=== PATIENT | female | born 1970 | race Two or more races ===

== ENCOUNTER 2020-02-18 18:42 | Inpatient (IN) | payer OTHER, SELFPAY ==
[~2020-02-18] VITALS: Ht 157.5 cm; Wt 73.8 kg
[2020-02-18] MEDS ORDERED: ACETAMINOPHEN 500 MG TAB PO ONE ×3 (18:51→19:00)
[2020-02-18 19:21] LABS: Basophils # (auto) 0 10 ^3/uL (0-0.2); Basophils % (auto) 0.3 % (0.0-2.0); Eosinophils # (auto) 0 10 ^3/uL (0-0.8); Hemoglobin 14.7 g/dL (12.2-16.2); Lymphocytes % (auto) 8.3 % (10.0-50.0); Mean Corpuscular Hemoglobin 29.9 pg (28.0-32.0); Mean Corpuscular Hgb Conc. 33.3 g/dL (32.0-36.0); Mean Corpuscular Volume 89.6 fL (80.0-100.0); Monocytes # (auto) 0.3 10 ^3/uL (0-1.3); Monocytes % (auto) 2.9 % (0.0-12.0); Neutrophils # (auto) 10.7 10 ^3/uL (1.6-8.6); Neutrophils % (auto) 88.5 % (37.0-80.0); Nucleated Red Blood Cells % 0.1 %; Platelet Count (auto) 294 10^3/uL (140-450); Red Blood Cells 4.91 10^6/uL (4.0-5.20); Red Cell Distribution Width 13.3 % (11.8-14.3); White Blood Cell 12.1 10^3/uL (4.4-10.8)
[2020-02-18 19:43] LABS: Alanine Aminotransferase 78 U/L (13-56); Anion Gap 7 (5-15); Aspartate Aminotransferase 34 U/L (15-37); BUN/Creatinine Ratio 8.5; Blood Urea Nitrogen 5 mg/dL (7-18); Calcium 7.7 mg/dL (8.5-10.1); Carbon Dioxide 26 mmol/L (21-32); Chloride 106 mmol/L (98-107); GFR African American 140 mL/min; GFR Non-African American 116 mL/min; Glucose 88 mg/dL (74-106); Potassium 3.7 mmol/L (3.5-5.1); Sodium 139 mmol/L (136-145)
[2020-02-18 19:47] LABS: Alkaline Phosphatase 92 U/L (45-117); Bilirubin, Total 0.7 mg/dL (0.2-1.0); Total Protein 7.3 g/dL (6.4-8.2)
[2020-02-18] MEDS ORDERED: SODIUM CHLORIDE 0.9% 1,000 ML IV ONE (20:00)
[2020-02-18] MEDS ORDERED: ACETAMINOPHEN 325 MG TAB PO ONE (20:00)
[2020-02-18 20:40] LABS: Urine Bacteria FEW /hpf (None Seen); Urine Blood 1+ /uL (Negative); Urine Mucus FEW (None Seen); Urine WBC 43 /hpf (0 - 5)
[2020-02-18] MEDS ORDERED: levoFLOXacin 750MG 150 ML IV ONE (21:15)
[2020-02-19] VITALS (8 sets, daily range): BP systolic 93–118; BP diastolic 51–74
[2020-02-19] MEDS ORDERED: ACETAMINOPHEN 500 MG TAB PO PRN (03:00)
[2020-02-19] MEDS ORDERED: ONDANSETRON HCL 4 MG/2 ML VIAL IV PRN (03:00)
[2020-02-19] MEDS: ALBUTEROL SULF HFA 90MCG INH 200DOSE IN SCH ×3 (06:00→22:01)
[2020-02-19] MEDS ORDERED: SODIUM CHLORIDE 0.9% 1,000 ML IV ONE (07:00)
[2020-02-19] MEDS: DOXYCYCLINE 100 MG TAB/CAP PO SCH ×2 (09:21→20:29)
[2020-02-19] MEDS: ASCORBIC ACID 1,000 MG TAB PO SCH (09:21)
[2020-02-19] MEDS: CHOLECALCIFEROL (VITD3) 1,000UNIT=25mCg TAB PO SCH (09:21)
[2020-02-19] MEDS: ZINC SULFATE 220mg CAP or TAB PO SCH (09:21)
[2020-02-19] MEDS ORDERED: levoFLOXacin 750MG 150 ML IV SCH (10:00)
[2020-02-19] MEDS ORDERED: ENOXAPARIN SOD 40 MG/0.4 ML SYRINGE SC SCH (10:00)
--- NOTE | 2020-02-19 10:00 | NUR ---
Admit to [facility] admitted to [facility] via gurney on manager cardiac cath, and portable 02 at 10L NRB. Patient transfered to bed, connected to unit monitoring and oxygen, and weighed by bedscale. Patient oriented to STACEY ROSENTHAL, primary RN, unit, room, bed, and unit policies regarding patient care and visiting hours. Patient placed on Novel Respiratory Isolation for rule out COVID. All questions and concerns addressed, patient verbalized understanding.
--- NOTE | 2020-02-19 11:15 | NUR ---
COVID-19 Covid-19 test results came back positive. ALMA Klein aware as well as Mo Baptiste RN and BRENDA Leach.
--- NOTE | 2020-02-19 11:31 | NUR ---
MD Klein, LAUNDRY MARKER SUPERVISOR at bedside. Orders received.
[2020-02-19] MEDS ORDERED: FUROSEMIDE 40 MG/4 ML VIAL IV ONE (11:45)
[2020-02-19] MEDS: DexAMETHasone SOD PHOS 4 MG/1ML SDV INJ IV SCH ×2 (14:53→20:30)
[2020-02-19] MEDS ORDERED: REMDESIVIR 200 MG in NS 210ml LOADING DOSE ADULT IV ONE (16:00)
--- NOTE | 2020-02-19 16:00 | NUR ---
REMDESIVIR Consent provided to patient from pharmacist. Patient signed consent, copy placed in chart and copy provided to patient. Awaiting pharmacy to deliver medication.
--- NOTE | 2020-02-19 18:58 | NUR ---
END OF SHIFT NOTE: Patient sitting up in bed eating dinner. Patient with no s/s of distress noted. Patient remains on hi flow at 60L 100% with O2 sats 91%. Patient is tolerating BSC with standby assist. Patient with IV to left AC #20 that is patent and flushes. Patient received first dose of Remdesivir without any complicaitons. Patient to receive first dose of actrema tonight. Report to be given to NOC Carolina NIEVES.
[2020-02-19] MEDS ORDERED: diphenhdrAMINE HCL 50 MG/1 ML VL IV ONE (19:30)
[2020-02-19] MEDS ORDERED: ACETAMINOPHEN 650 mg PER 20 mL UD PO ONE (19:30)
[2020-02-19] MEDS ORDERED: methylPREDNISolone SOD SUCC 40 MG/ML VL IV ONE (19:30)
[2020-02-19] MEDS ORDERED: TOCILIZUMAB 400 MG in SODIUM CHL 0.9% 80 ML IV SCH (20:00)
[2020-02-19] MEDS: ENOXAPARIN SOD 80 MG/0.8ML SYRINGE SC SCH (20:29)
[2020-02-20] VITALS (14 sets, daily range): BP systolic 95–128; BP diastolic 56–85
[2020-02-20 03:24] LABS: Basophils # (auto) 0 10 ^3/uL (0-0.2); Eosinophils # (auto) 0 10 ^3/uL (0-0.8); Hematocrit 42.9 % (36.0-46.0); Hemoglobin 14.1 g/dL (12.2-16.2); Lymphocytes # (auto) 0.8 10 ^3/uL (0.4-5.4); Mean Corpuscular Hemoglobin 29.7 pg (28.0-32.0); Mean Corpuscular Hgb Conc. 32.9 g/dL (32.0-36.0); Mean Corpuscular Volume 90.2 fL (80.0-100.0); Monocytes # (auto) 0.2 10 ^3/uL (0-1.3); Monocytes % (auto) 1.5 % (0.0-12.0); Neutrophils # (auto) 14.4 10 ^3/uL (1.6-8.6); Neutrophils % (auto) 93.5 % (37.0-80.0); Platelet Count (auto) 334 10^3/uL (140-450); Red Blood Cells 4.76 10^6/uL (4.0-5.20); Red Cell Distribution Width 13.3 % (11.8-14.3); White Blood Cell 15.4 10^3/uL (4.4-10.8)
[2020-02-20 03:45] LABS: Albumin 2.6 g/dL (3.4-5.0); Calcium 8.6 mg/dL (8.5-10.1); Potassium 3.5 mmol/L (3.5-5.1)
[2020-02-20 03:49] LABS: BUN/Creatinine Ratio 16.7; Bilirubin, Total 0.6 mg/dL (0.2-1.0); Total Protein 7.2 g/dL (6.4-8.2)
--- NOTE | 2020-02-20 05:59 | NUR ---
Respiratory note: RECEIVED PATIENT ON HFNC WITH THE CHARTED SETTINGS. SPO2 90%. PATIENT IS RESTING COMFORTABLY AND TOLERATING HFNC WELL. NO INDICATION TO MAKE ANY ADJUSTMENTS AT THIS TIME. WILL CONTINUE TO ASSESS PATIENT FOR TITRATIONS.
[2020-02-20] MEDS: ALBUTEROL SULF HFA 90MCG INH 200DOSE IN SCH ×4 (06:00→22:55)
--- NOTE | 2020-02-20 07:00 | NUR ---
Pt was at 50 Liters O2, increased to 60 Liters. Attempted to notify RT but no answer in office at this time. Will inform RN in report. Pt O2 sat is 87% at this time on 60L. Will continue to monitor.
--- NOTE | 2020-02-20 07:02 | NUR ---
Most of shift pt has been able to rest and O2 sat was primarily 88-91%. Pt had linen change and bed bath this shift.
--- NOTE | 2020-02-20 07:24 | NUR ---
Report given, O2 sat 89% at this time on 60L. Care endorsed.
--- NOTE | 2020-02-20 07:45 | NUR ---
OPENING SHIFT NOTE: Received report from NOC RN, Carolina. Assumed care of patient. Patient received lying in bed connected to bedside monitor with alarms in place. Patient with no s/s of distress and denies pain. Patient on high flow oxygen at 60L 100% with sats in the mids 80s. REJI RN recently increased from 50L to 60L. Patient with IV to left AC #20 running NS at TKO. Patient is getting up to BSC with stand by assist. Bed in lowest position, rails x2 up and call light within reach. Updated on plan of care. Will continue to monitor.
--- NOTE | 2020-02-20 08:30 | NUR ---
RT Jeff RT made aware of patient's O2 sats in the mid 80s. Also informed RT that patient is currently on hi flow at 60L 100%. Patient currently eating breakfast. Will continue monitoring.
[2020-02-20] MEDS: DexAMETHasone SOD PHOS 4 MG/1ML SDV INJ IV SCH ×2 (09:57→22:28)
[2020-02-20] MEDS: DOXYCYCLINE 100 MG TAB/CAP PO SCH (09:58)
[2020-02-20] MEDS: ZINC SULFATE 220mg CAP or TAB PO SCH (09:58)
[2020-02-20] MEDS: ENOXAPARIN SOD 80 MG/0.8ML SYRINGE SC SCH ×2 (09:59→22:28)
[2020-02-20] MEDS: CHOLECALCIFEROL (VITD3) 1,000UNIT=25mCg TAB PO SCH (09:59)
[2020-02-20] MEDS: ASCORBIC ACID 1,000 MG TAB PO SCH (09:59)
[2020-02-20] MEDS ORDERED: levoFLOXacin 750MG 150 ML IV SCH (10:00)
--- NOTE | 2020-02-20 10:00 | NUR ---
1000 medications passed. Patient able to tolerate taking pills without any difficulty. Patient continues to have O2 sats ~88% despite on hi flow O2. Increased to 70L 100%. Patient instructed on how to take slow deep breaths. RT Jeff aware.
--- NOTE | 2020-02-20 10:48 | NUR ---
Dr Cisneros and Dr Shaikh bianchi. Patient continues to have O2 sats 86-89%. Respiratory rate mid 20s. Patient with no obvious s/s of distress at this time. Will notify hospitalists that Dr Watkins cannot take consult for pulmonary due to patient having no insurance. Will continue to monitor.
[2020-02-20] MEDS ORDERED: FUROSEMIDE 40 MG/4 ML VIAL IV ONE (11:15)
--- NOTE | 2020-02-20 11:30 | NUR ---
MD Dr Johnson on unit. Orders received.
[2020-02-20] MEDS ORDERED: methylPREDNISolone SOD SUCC 40 MG/ML VL IV ONE (11:45)
[2020-02-20] MEDS ORDERED: POTASSIUM CHL 20 Meq TABLET PO ONE (11:45)
[2020-02-20] MEDS ORDERED: PANTOPRAZOLE 40 MG TAB PO ONE (11:45)
[2020-02-20] MEDS ORDERED: diphenhdrAMINE HCL 50 MG/1 ML VL IV ONE (11:45)
[2020-02-20] MEDS ORDERED: ACETAMINOPHEN 650 mg PER 20 mL UD PO ONE (11:45)
[2020-02-20] MEDS ORDERED: TOCILIZUMAB 400 MG in SODIUM CHL 0.9% 80 ML IV ONE (12:00)
--- NOTE | 2020-02-20 12:46 | NUR ---
Respiratory note: PATIENT PLACED ON B3 BIPAP, WAS FITTED WITH A MEDIUM FULL FACE MASK, AND IS BEING VENTILATED WITH THE CHARTED SETTINGS. SPO2 88%, LUNG CL/DIM T/O. PATIENT TOLERATING BIPAP WELL. ABG TO BE DRAWN AT 1600. BIPAP PLUGGED INTO RED OUTLET AND ALL ALARMS ARE SET AND AUDIBLE. WILL CONTINUE TO MONITOR.
--- NOTE | 2020-02-20 12:52 | NUR ---
Patient placed on CPAP 12 100% by RT Jeff. Patient initial vitals post CPAP, HR 135 BP 128/78, RR 34, O2sats 89%. After 15min, RR 29, O2sats 94%. Call Dr Johnson due to patient c/o constant coughing on CPAP. Orders received for Robitussin. suggested to decrease CPAP to 10, but after discussion with RT Jeff will leave patient at current settings.
[2020-02-20] MEDS ORDERED: guaiFENesin-DM 100/10mg/5ml SYR PO PRN (13:00)
[2020-02-20] MEDS: PIPERACILLIN-TAZOB 3.375GM 100 ML IV SCH ×2 (13:21→18:24)
[2020-02-20] MEDS ORDERED: REMDESIVIR 100mg in NS 230ml DAILYx4DAYS (NO VENT) IV SCH (16:00)
--- NOTE | 2020-02-20 18:52 | NUR ---
END OF SHIFT NOTE: Patient sitting up in bed waiting to eat dinner and to have respiratory place on High Flow O2. Patient with no s/s of distress noted. Patient remains on CPAP 12 fiO2 100% with O2 sats 96%. Patient is tolerating bedpan. Patient with IV to right hand #22 that is patent and flushes with Zosyn infusing. Report to be given to Mukund MENDOZA RN.
--- NOTE | 2020-02-20 19:20 | NUR ---
OPENING SHIFT RECEIVED REPORT FROM DAY SHIFT RN. ASSUMED CARE OF PATIENT. PATENT IN BED WATCHING TV WITH NO SIGNS OR SYMPTOMS OF SOB, PAIN OR DISTRESS. CURRENTLY ON CPAP 12 / 100 % FI02, 02 SAT - 95%. LEFT HAND IV - CLEAN/DRY/INTACT. UPDATED PATIENT ON PLAN OF CARE. REPOSITIONED FOR COMFORT. BED IN LOWEST POSITION, SIDE RAILS UP X2. CALL LIGHT WITHIN REACH. WILL CONTINUE TO MONITOR.
--- NOTE | 2020-02-20 19:50 | NUR ---
RT AT BEDSIDE - HIGHFLOW RT PLACED PATIENT ON HIGHFLOW 50L / 100%, 02 SAT - 91%. PATIENT TOLERATING WELL AND EATING DINNER. WILL CONTINUE TO MONITOR.
--- NOTE | 2020-02-20 20:55 | NUR ---
RT AT BEDSIDE - CPAP PATENT DONE EATING DINNER. RT PLACED PATIENT BACK ON CPAP 12 / 100%, 02 SAT - 93%. PATIENT TOLERATING WELL. WILL CONTINUE TO MONITOR.
--- NOTE | 2020-02-20 22:10 | NUR ---
PM CARE CCT ASSISTED PATIENT WITH PM CARE WITH CHG WIPES AND WASH CLOTHS. PARTIAL LINEN CHANGE AND GOWN CHANGED. REPOSITIONED FOR COMFORT. BED IN LOWEST POSITION. SIDE RAILS UP X2. CALL LIGHT WITHIN REACH. WILL CONTINUE TO MONITOR.
[2020-02-21] VITALS (12 sets, daily range): BP systolic 103–130; BP diastolic 61–83
[2020-02-21] MEDS: PIPERACILLIN-TAZOB 3.375GM 100 ML IV SCH ×4 (00:30→17:54)
[2020-02-21 03:38] LABS: Basophils # (auto) 0 10 ^3/uL (0-0.2); Basophils % (auto) 0.1 % (0.0-2.0); Eosinophils # (auto) 0 10 ^3/uL (0-0.8); Nucleated Red Blood Cells % 0.1 %
[2020-02-21 03:40] LABS: Hematocrit 40.8 % (36.0-46.0); Hemoglobin 13.7 g/dL (12.2-16.2); Lymphocytes % (auto) 7.5 % (10.0-50.0); Mean Corpuscular Hemoglobin 30.2 pg (28.0-32.0); Mean Corpuscular Hgb Conc. 33.7 g/dL (32.0-36.0); Mean Corpuscular Volume 89.6 fL (80.0-100.0); Monocytes # (auto) 0.7 10 ^3/uL (0-1.3); Monocytes % (auto) 5.4 % (0.0-12.0); Neutrophils # (auto) 11.4 10 ^3/uL (1.6-8.6); Platelet Count (auto) 467 10^3/uL (140-450); Red Blood Cells 4.55 10^6/uL (4.0-5.20); Red Cell Distribution Width 13.6 % (11.8-14.3); White Blood Cell 13.1 10^3/uL (4.4-10.8)
[2020-02-21 03:59] LABS: BUN/Creatinine Ratio 26.4; Calcium 8.6 mg/dL (8.5-10.1); Potassium 3.6 mmol/L (3.5-5.1)
[2020-02-21] MEDS: ALBUTEROL SULF HFA 90MCG INH 200DOSE IN SCH ×3 (06:20→23:10)
--- NOTE | 2020-02-21 07:20 | NUR ---
END OF SHIFT REPORT GIVEN TO DAY SHIFT RN. CARE ENDORSED.
--- NOTE | 2020-02-21 08:00 | NUR ---
OPENING Report received from LANE MENDOZA RN. Care initiated and initial assessment complete.
[2020-02-21] MEDS ORDERED: POTASSIUM CHL 10 Meq TABLET PO SCH (10:00)
[2020-02-21] MEDS ORDERED: FUROSEMIDE 20 MG/2 ML VIAL IV SCH (10:00)
--- NOTE | 2020-02-21 10:15 | NUR ---
MD BEDSIDE: Shaikh Dr. Shaikh mcbride. Per MD use BiPap intermittently and decrease FIO2 as possible.
[2020-02-21] MEDS: PANTOPRAZOLE 40 MG TAB PO SCH (10:50)
[2020-02-21] MEDS: ASCORBIC ACID 1,000 MG TAB PO SCH (10:50)
[2020-02-21] MEDS: DexAMETHasone SOD PHOS 4 MG/1ML SDV INJ IV SCH ×2 (10:50→21:41)
[2020-02-21] MEDS: ZINC SULFATE 220mg CAP or TAB PO SCH (10:50)
[2020-02-21] MEDS: CHOLECALCIFEROL (VITD3) 1,000UNIT=25mCg TAB PO SCH (10:51)
[2020-02-21] MEDS: ENOXAPARIN SOD 80 MG/0.8ML SYRINGE SC SCH ×2 (10:51→21:41)
[2020-02-21] MEDS: REMDESIVIR 100mg in NS 230ml DAILYx4DAYS (NO VENT) IV SCH (17:36)
[2020-02-21] MEDS: FUROSEMIDE 20 MG/2 ML VIAL IV SCH (17:54)
--- NOTE | 2020-02-21 19:40 | NUR ---
OPENING NOTE REPORT RECEIVED FROM CHANO RN PATIENT IS A/OX4, RESTING COMFORTABLY IN BED, CONNECTED TO CONTINUOUS MONITORS. PATIENT IS ON HI FLOW OXYGEN AT 50L, FIO2 100%. NO SOB OR RESPIRATORY DISTRESS IS NOTED AT THIS TIME. PHYSICAL ASSESSMENT DONE-SEE INTERVENTIONS. IV LINE TO RIGHT HAND INTACT, PATENT AND SALINE LOCKED. PATIENT ABLE TO SELF REPOSITION. CALL LIGHT WITHIN REACH.
[2020-02-21] MEDS: POTASSIUM CHL 10 Meq TABLET PO SCH (21:41)
[2020-02-22] VITALS (14 sets, daily range): BP systolic 96–161; BP diastolic 53–73
[2020-02-22] MEDS: PIPERACILLIN-TAZOB 3.375GM 100 ML IV SCH ×5 (00:04→23:44)
--- NOTE | 2020-02-22 00:18 | NUR ---
PAGED HOSPITALIST RE: PATIENT REQUESTING SLEEPING AID NO CURRENT MEDICATIONS ORDERED AT THIS TIME FOR SLEEP WILL WAIT FOR CALL BACK
[2020-02-22] MEDS ORDERED: TEMAZEPAM 15 MG CAP PO ONE (01:00)
--- NOTE | 2020-02-22 01:05 | NUR ---
NEW ORDER RECEIVED AND CARRIED OUT SEE EMAR FOR DETAILS
--- NOTE | 2020-02-22 06:00 | NUR ---
AM CARE PATIENT GIVEN COMPLETE LINEN CHANGE. ASSISTED PATIENT TO BEDSIDE COMMODE, WHILE PATIENT ON COMMODE, PATIENT GIVEN WARM SOAPY WASH CLOTHS TO CLEAN SELF. PATIENT ABLE TO INDEPENDENTLY CLEANSE SELF WITH TOWELS PROVIDED. ASSISTED PATIENT WITH GOWN CHANGE. PATIENT ABLE TO GET BACK INTO BED WITH MINIMAL SOB. OVERALL, PATIENT TOLERATED WELL WITH SPO2 DECREASING TO 91% AT THE LOWEST. ONCE IN BED, SPO2 BACK UP TO 95%.
[2020-02-22] MEDS: FUROSEMIDE 20 MG/2 ML VIAL IV SCH ×2 (06:12→17:13)
[2020-02-22] MEDS: ALBUTEROL SULF HFA 90MCG INH 200DOSE IN SCH ×3 (06:12→22:14)
--- NOTE | 2020-02-22 06:12 | NUR ---
Respiratory note: LIZBETH HAND DELIVERED PT'S SCHEDULED MDI TREATMENT AT 0612.
--- NOTE | 2020-02-22 07:32 | NUR ---
CLOSING PATIENT CURRENTLY ON BEDSIDE COMMODE WITH AM CCT AT BEDSIDE. PATIENT CONNECTED TO ALL MONITORS. PATIENT ON HI BRYAN CANNULA AT 50L, FIO2 100%. NO DISTRESS DURING SHIFT CARE ENDORSED TO AM SHIFT RN AARTI
[2020-02-22] MEDS: PANTOPRAZOLE 40 MG TAB PO SCH (09:45)
[2020-02-22] MEDS: POTASSIUM CHL 10 Meq TABLET PO SCH ×2 (09:45→22:14)
[2020-02-22] MEDS: ASCORBIC ACID 1,000 MG TAB PO SCH (09:45)
[2020-02-22] MEDS: ENOXAPARIN SOD 80 MG/0.8ML SYRINGE SC SCH ×2 (09:45→22:14)
[2020-02-22] MEDS: DexAMETHasone SOD PHOS 4 MG/1ML SDV INJ IV SCH ×2 (09:45→22:14)
[2020-02-22] MEDS: DOCUSATE SOD 100 MG CAP PO PRN (09:45)
[2020-02-22] MEDS: ZINC SULFATE 220mg CAP or TAB PO SCH (09:45)
--- NOTE | 2020-02-22 10:33 | NUR ---
MD PATI SINGH UPDATED ON PATIENTS STATUS. SEE NEW ORDERS. Addendum: 02/22/20 at 1456 by Manisha Nicole RN MD AWARE NO LABS ARE IN PLACE FOR TODAY. VERBALIZED UNDERSTANDING.
[2020-02-22] MEDS ORDERED: TEMAZEPAM 15 MG CAP PO PRN (11:45)
--- NOTE | 2020-02-22 13:34 | NUR ---
PATIENT RESTING AT THIS TIME IN SEMI FOWLERS, POX 96% HR SR 60'S. WILL CONTINUE TO MONITOR.
[2020-02-22] MEDS: CHOLECALCIFEROL (VITD3) 1,000UNIT=25mCg TAB PO SCH (14:34)
--- NOTE | 2020-02-22 15:03 | NUR ---
U/A PENDING ATTEMPT TO COLLECT U/A BUT PATIENT PLACED TISSUE PAPER IN SPECIMEN CONTAINER. UA REMAINS PENDING.
--- NOTE | 2020-02-22 15:04 | NUR ---
INCENTIVE SPIROMETER PATIENT INSTRUCTED TO USE I.S AND ITS IMPORTANCE. PATIENT ABLE TO RETURN PROPER RETURN DEMONSTRATION REACHING 750ML DURING INSPIRATION. PT TOLERATED WELL. WILL CONTINUE TO ENCOURAGE.
--- NOTE | 2020-02-22 16:51 | NUR ---
PT STATUS PATIENT IN SEMI FOWLERS, WATCHING TV WITH CPAP IN PLACE. POX 93-94%. NO DISTRESS NOTED. WILL CONTINUE TO MONITOR
[2020-02-22] MEDS: REMDESIVIR 100mg in NS 230ml DAILYx4DAYS (NO VENT) IV SCH (17:13)
--- NOTE | 2020-02-22 20:00 | NUR ---
OPENING NOTE REPORT RECEIVED FROM CHANO NIEVES PATIENT IS A/OX4, RESTING COMFORTABLY IN BED, TALKING ON THE PHONE. NO COMPLAINS OF PAIN RIGHT NOW. PATIENT IS ON HI FLOW OXYGEN AT 50L, FIO2 100%. NOTED SOME SOB ON EXERTION BUT PATIENT SAID SHE IS FEELING MUCH BETTER .IS DONE - UP TO 750MLS. FULL ASSESSMENT DONE-SEE INTERVENTIONS. IV LINE TO RIGHT HAND INTACT AND PATENT. CALL LANE WITHIN REACH, BED AT LOW POSITION.
--- NOTE | 2020-02-22 22:21 | NUR ---
PATIENT ON PRONE POSITION PATIENT SAID SHE FEELS BETTER SPO2 95%
[2020-02-23] VITALS (11 sets, daily range): BP systolic 100–118; BP diastolic 50–74
--- NOTE | 2020-02-23 | NUR ---
PATIENT REPOSITIONED - LYING SUPINE NOW
--- NOTE | 2020-02-23 02:02 | NUR ---
PATIENT'S HR 44-47/MIN SINUS BRADYCARDIA BP 107/42 MMHG PATIENT IS SLEEPING WILL CONTINUE TO MONITOR
[2020-02-23 03:53] LABS: Hematocrit 41.3 % (36.0-46.0); Hemoglobin 13.7 g/dL (12.2-16.2); Mean Corpuscular Hemoglobin 29.7 pg (28.0-32.0); Mean Corpuscular Hgb Conc. 33.1 g/dL (32.0-36.0); Mean Corpuscular Volume 89.8 fL (80.0-100.0); Platelet Count (auto) 397 10^3/uL (140-450); Red Cell Distribution Width 13.3 % (11.8-14.3); White Blood Cell 8.1 10^3/uL (4.4-10.8)
[2020-02-23 03:54] LABS: Basophils % (manual) 0 (0.0-2.0); Blast Cells 0; Eosinophils % (manual) 0 (0-7); Metamyelocytes % 0; Myelocytes % 0; Promyelocytes % 0; Reactive Lymphocytes 0
[2020-02-23 04:10] LABS: Potassium 3.9 mmol/L (3.5-5.1)
[2020-02-23 04:23] LABS: Albumin 2.5 g/dL (3.4-5.0); Bilirubin, Total 0.6 mg/dL (0.2-1.0); CRP High Sensitivity 5.83 mg/dL (< 0.3); Calcium 8.2 mg/dL (8.5-10.1); Magnesium 2.5 mg/dL (1.6-2.6); Total Protein 6.5 g/dL (6.4-8.2)
[2020-02-23 05:05] LABS: Band Neutrophils % (manual) 3; Lymphocytes % (manual) 17 (10.0-50.0); Monocytes % (manual) 6 (0-12)
[2020-02-23] MEDS: ALBUTEROL SULF HFA 90MCG INH 200DOSE IN SCH ×3 (06:00→21:45)
[2020-02-23] MEDS: PIPERACILLIN-TAZOB 3.375GM 100 ML IV SCH ×4 (06:29→21:45)
[2020-02-23] MEDS: FUROSEMIDE 20 MG/2 ML VIAL IV SCH ×2 (06:29→17:57)
[2020-02-23] MEDS: ASCORBIC ACID 1,000 MG TAB PO SCH (10:26)
[2020-02-23] MEDS: ZINC SULFATE 220mg CAP or TAB PO SCH (10:26)
[2020-02-23] MEDS: POTASSIUM CHL 10 Meq TABLET PO SCH ×2 (10:26→21:44)
[2020-02-23] MEDS: PANTOPRAZOLE 40 MG TAB PO SCH (10:26)
[2020-02-23] MEDS: DexAMETHasone SOD PHOS 4 MG/1ML SDV INJ IV SCH ×2 (10:26→21:45)
[2020-02-23] MEDS: CHOLECALCIFEROL (VITD3) 1,000UNIT=25mCg TAB PO SCH (10:26)
[2020-02-23] MEDS: ENOXAPARIN SOD 80 MG/0.8ML SYRINGE SC SCH ×2 (10:26→21:44)
--- NOTE | 2020-02-23 13:23 | NUR ---
assessment Patient is a 49 year old female who is alert and oriented. Patients cognitive abilities are intact. Prior to admission patient lived home with family and functioned independently. Patient informed me she is able to care for her own ADLs. Per patient she will return home to her prior living arrangements post discharge and family will transport her home. Patient informed me her teenage boys started boxing training at the gym and that is where they came into contact with Orlin العراقي. Per patient both her sons and her are positive. Per patient they are all self isolating. I informed patient I Will continue to monitor her and follow up as appropriate. I informed patient she has a right to speak to a older adult social work specialist regarding all care. I informed patient she has a right to participate in any and all discharge planning. Patient does not have a POA and advanced directive. I have offered patient information on POA and advanced directives. I informed the patient the advantages and benefits of having an Advanced Directive. Patient verbalized understanding and agreed to discharge plan. Patient informed me she has [employer] insurance. Rani in admitting has been notified and will contact patient for insurance information. Addendum: 02/23/20 at 1328 by Tiffanie NINO Amended: Links added.
--- NOTE | 2020-02-23 14:27 | NUR ---
Est energy needs 2515-7622 kcal (25-30 kcal/kg BW 72.1kg) est protein needs 58-72g (0.8-1g/kg BW 72.1kg) Will reassess prn Addendum: 02/23/20 at [address] Amended: Links added.
--- NOTE | 2020-02-23 14:32 | NUR ---
High flow nasal cannula check done. titrated fio2 to 90%. spo2 93% after titration. LIZBETH Sexton aware of changes.
[2020-02-23] MEDS: REMDESIVIR 100mg in NS 230ml DAILYx4DAYS (NO VENT) IV SCH (17:00)
[2020-02-23] MEDS: DOCUSATE SOD 100 MG CAP PO PRN (21:44)
[2020-02-24] VITALS (10 sets, daily range): BP systolic 93–108; BP diastolic 49–67
[2020-02-24] MEDS: PIPERACILLIN-TAZOB 3.375GM 100 ML IV SCH ×3 (05:49→17:53)
[2020-02-24] MEDS: FUROSEMIDE 20 MG/2 ML VIAL IV SCH ×2 (05:50→18:00)
[2020-02-24] MEDS: ALBUTEROL SULF HFA 90MCG INH 200DOSE IN SCH ×3 (06:18→21:10)
--- NOTE | 2020-02-24 06:18 | NUR ---
RT NOTE: PT RECEIVED ON CPAP OF 12. PT TAKEN OFF OF CPAP AND PLACED ONTO 70% AT 50L ON HIGH FLOW NASAL CANNULA. PT STATES SHE IS FEELING BETTER TODAY THAN YESTERDAY. NO SIGNS OF DISTRESS. PT DOES DESATURATE MILDLY WHEN SPEAKING OR MOVING. PT ADVISED TO TAKE IT SLOW WHEN MOVING AND REFRAIN FROM SPEAKING MUCH POSSIBLE. SPO2 92-97 HR 47 RR 22. WILL CONTINUE TO MONITOR. Addendum: 02/24/20 at 0822 by TONI MO RT RT MDI GIVEN WITH [facility]
--- NOTE | 2020-02-24 07:45 | NUR ---
REPORT REPORT RECEIVED FROM RAJI RNRICARDO. PT VIEWED THROUGH SLIDING GLASS DOORS. PT IN ISOLATION SHE IS +COVID. VSS. NO DISTRESS NOTED AND CONTINUE TO MONITOR.
--- NOTE | 2020-02-24 08:45 | NUR ---
ASSESSMENT PT AWAKE AND A/O X4. ABLE TO REPOSITION SELF IN BED AND GET OOB TO THE BSC. LUNGS CLEAR IN THE UPPER LOBES AND CLEAR AND DIMINISHED IN THE LOWER LOBES. HIGH FLOW O2 AT 70% FIO2 AND A 50 LITER FLOW. O2 SAT OF 93% AND NO RESP DISTRESS NOTED. TELE SB 49. PALPABLE PULSES TO ALL EXTREMITIES. ABD SOFT WITH + BOWEL SOUNDS. PT WAS UP TO THE BSC EARLIER AND HAD A BM AND PASSED URINE., 200ML CLEAR YELLOW. DENIES ANY PAIN. CONTINUE TO MONITOR.
[2020-02-24] MEDS: ENOXAPARIN SOD 80 MG/0.8ML SYRINGE SC SCH ×2 (11:26→21:11)
[2020-02-24] MEDS: ASCORBIC ACID 1,000 MG TAB PO SCH (11:27)
[2020-02-24] MEDS: CHOLECALCIFEROL (VITD3) 1,000UNIT=25mCg TAB PO SCH (11:27)
[2020-02-24] MEDS: PANTOPRAZOLE 40 MG TAB PO SCH (11:27)
[2020-02-24] MEDS: ZINC SULFATE 220mg CAP or TAB PO SCH (11:27)
[2020-02-24] MEDS: POTASSIUM CHL 10 Meq TABLET PO SCH ×2 (11:27→21:11)
[2020-02-24] MEDS: DexAMETHasone SOD PHOS 4 MG/1ML SDV INJ IV SCH ×2 (11:28→21:10)
--- NOTE | 2020-02-24 11:35 | NUR ---
UPDATE PT RESTING WITH NO COMPLAINTS OF PAIN OR SOB. VSS. REMAINS ON THE HIGH FLOW O2 WITH 70% FIO2 AND A 50 L FLOW. LUNGS CLEAR AN WIH EXPIRATORY WHEEZES IN THE UPPER LOBES AND CLEAR AND DIMINISHED IN THE LOWER LOBES. CONTINUE TO MONITOR.
--- NOTE | 2020-02-24 14:21 | NUR ---
RT NOTE: FIO2 DECREASED TO 60%. FLOW DECREASED TO 45L. NO DISTRESS NOTED. WILL CONTINUE TO MONITOR.
[2020-02-24] MEDS ORDERED: REMDESIVIR 100mg in NS 230ml DAILYx4DAYS (NO VENT) IV SCH (15:00)
--- NOTE | 2020-02-24 15:21 | NUR ---
PT SCHEDULED FOR REMDESEVIR AT 1500, PER PHARMACY,AND STILL HAVE NOTE RECEIVED THE DOSAGE. CALLED PHARMACY FOR MED.
--- NOTE | 2020-02-24 19:00 | NUR ---
PT EATING HER DINNER. NO COMPLAINS OF PAIN OR NAUSEA,
--- NOTE | 2020-02-24 19:40 | NUR ---
OPENING NOTE REPORT RECEIVED FROM CHANO RN PATIENT IS A/OX4 CONNECTED TO CONTINUOUS MONITORS. PATIENT IS POSITIVE FOR COVID, RESPIRATORY ISOLATION IN PLACE. VITALS STABLE AT THIS TIME. PATIENT IS ON HIGH FLOW NASAL CANNULA WITH SETTINGS AT 45L, FIO2 65%, SPO2 94%. PATIENT ABLE TO MOVE ALL EXTREMITIES, AND REPOSITION SELF IN BED WITHOUT DIFFICULTY. BEDSIDE COMMODE NEXT TO PATIENTS BED. IV NOTED TO RIGHT HAND 22G, SALINE LOCKED BUT PATENT. POC DISCUSSED, ALL QUESTIONS ANSWERED. CALL LIGHT WITHIN REACH.
--- NOTE | 2020-02-24 21:15 | NUR ---
REPORT REPORT GIVEN TO PEACE ALEGRIA RN.
[2020-02-25] VITALS (10 sets, daily range): BP systolic 90–129; BP diastolic 53–83
[2020-02-25] MEDS: PIPERACILLIN-TAZOB 3.375GM 100 ML IV SCH ×5 (00:11→23:39)
[2020-02-25] MEDS: ALBUTEROL SULF HFA 90MCG INH 200DOSE IN SCH ×3 (06:04→21:36)
--- NOTE | 2020-02-25 06:04 | NUR ---
Respiratory note: RECEIVED PT ON HFNC PLUGGED INTO RED OUTLET. AMBU BAG/MASK IS AT BEDSIDE. TITRATED FLOW FROM 45L, TO 40L, TITRATED FIO2 FROM 65%, TO 60%. WATER AT ADEQUATE LEVEL. PT BS CLEAR/DIMINISHED AT THE BASES. 1 PUFF (90MCG) ALBUTEROL GIVEN VIA MDI WITH CHAMBER, WITH NO ADVERSE REACTIONS NOTED. PT TOLERATING HFNC WELL. NO SKIN BREAK DOWN, OR DISCOMFORT NOTED. WILL CONTINUE TO MONITOR PT. CHARTING COMPLETE FROM OUTSIDE OF PT ROOM.
[2020-02-25] MEDS: FUROSEMIDE 20 MG/2 ML VIAL IV SCH ×2 (06:05→18:42)
--- NOTE | 2020-02-25 06:30 | NUR ---
AM CARE PATIENT GIVEN BED BATH USING WARM SOAPY WASH CLOTHS. PATIENT GIVEN COMPLETE LINEN AND GOWN CHANGE. PATIENT ABLE TO HELP WITH CARES. PATIENT TOLERATED WELL.
--- NOTE | 2020-02-25 07:27 | NUR ---
CLOSING PATIENT RESTING COMFORTABLY IN BED. NO SOB OR DISTRESS NOTED DURING SHIFT. PATIENT IS ON HIGH FLOW CANNULA 45L, FIO2 65% WITH SPO2 CURRENTLY 93%. CALL LIGHT WITHIN REACH. WILL ENDORSE CARE TO AM SHIFT LIZBETH PIERRE
--- NOTE | 2020-02-25 08:45 | NUR ---
AM ASSESSMENT DONE DENIES ANY PAIN, VSS, AFEBRILE. REMAINS ON COVID ISOLATION. PT ABLE TO MOVE INDEPENDENTLY IN ROOM AND PERFORM ADLS WITH MINIMAL SUPERVISION. PT CURRENTLY ON HIGH FLOW AT 40L AT 60 % FIO2. IV BENIGN AND PATENT. EDUCATED ON POC, PT VERBALIZED UNDERSTANDING.
--- NOTE | 2020-02-25 10:02 | NUR ---
Respiratory note: ROUTINE HFNC CHECK COMPLETE. WATER LEVEL IS ADEQUATE. PT IS SITTING UP IN CHAIR STATING THAT SHE IS EXERCISING HER LEGS. NO RESPIRATORY DISTRESS NOTED, HOWEVER RR IS ELEVATED DUE TO PT EXERCISING. RN AWARE. WILL CONTINUE TO MONITOR PT.
[2020-02-25] MEDS: ENOXAPARIN SOD 80 MG/0.8ML SYRINGE SC SCH ×2 (10:30→21:36)
[2020-02-25] MEDS: PANTOPRAZOLE 40 MG TAB PO SCH (10:30)
[2020-02-25] MEDS: POTASSIUM CHL 10 Meq TABLET PO SCH ×2 (10:30→21:36)
[2020-02-25] MEDS: DexAMETHasone SOD PHOS 4 MG/1ML SDV INJ IV SCH ×2 (10:30→21:36)
[2020-02-25] MEDS: ZINC SULFATE 220mg CAP or TAB PO SCH (10:31)
[2020-02-25] MEDS: ASCORBIC ACID 1,000 MG TAB PO SCH (10:32)
[2020-02-25] MEDS: CHOLECALCIFEROL (VITD3) 1,000UNIT=25mCg TAB PO SCH (10:32)
--- NOTE | 2020-02-25 10:33 | NUR ---
DR. DODD IN TO SEE PT. HE ENCOURAGED TO CONTINUE USING IS AND GETTING OUT OF BED. SITTING UP MUCH POSSIBLE. PT VERBALIZED UNDERSTANDING.
--- NOTE | 2020-02-25 14:00 | NUR ---
Respiratory note: PT PLACED ON 5L OXYMIZER 46%. SPO2 92%, HR 78, RR 28, BS CLEAR/DIMINISHED BILATERALLY. PT TOLERATING CHANGE WELL. HFNC AT BEDSIDE WITH PREVIOUS SETTINGS IF PT REQUIRES INCREASED FLOW. PT ON CONTINUOUS BEDSIDE MONITORING. WILL CONTINUE TO MONITOR PT.
--- NOTE | 2020-02-25 15:00 | NUR ---
IV ACCESS PT LOST HER 22 # IV, IT BECAME OCCLUDED. NEW IV STARTED ON RT HAND 20#. OBTAINED ON 1ST ATTEMPT. PT TOLERATED PROCEDURE WELL. ATB. CONTINUED SCHEDULED. PT STATES " THE OTHER IV HAS BEEN THERE SINCE ADMISSION, IT HAS LASTED A WHILE".
--- NOTE | 2020-02-25 16:06 | NUR ---
Respiratory note: PT AWAKE, AND ALERT. NO RESPIRATORY DISTRESS NOTED. SPO2 93% ON 5L OXYMIZER 46% FIO2, HR 60, RR 20, BS CLEAR BILATERALLY/DIMINISHED BILATERALLY IN THE BASES. HFNC REMAINS AT BEDSIDE IF INCREASED FLOW IS REQUIRED FOR PT. NO FURTHER RESPIRATORY INTERVENTIONS INDICATED. PT ON CONTINUOUS BEDSIDE MONITORING. RN MADE AWARE. WILL ENDORSE PT STATUS TO PUMP STITCHER.
--- NOTE | 2020-02-25 18:15 | NUR ---
Respiratory note: Received pt from evening or night nurse supervisor RT. Pt on oxymizer 5lpm, SPO2 90%. Pt says she is feeling fine, denies SOB at this time. High flow NC remains on standby at bedside, but not indicated at this time. Increased oxymizer to 8lpm, HR 81, RR 30, SPO2 92%. Notified RN of changes. Advised pt to call for RT if feeling SOB or wants to go back on high flow, pt verbalized agreement. Will continue to monitor.
--- NOTE | 2020-02-25 19:40 | NUR ---
REPORT GIVEN TO TELECOMMUNICATIONS LINE MECHANIC.
--- NOTE | 2020-02-25 21:00 | NUR ---
OPENING NOTE REPORT RECEIVED FROM CHANO RN PATIENT IS A/OX4 CONNECTED TO CONTINUOUS MONITORS. PATIENT IS POSITIVE FOR COVID, RESPIRATORY ISOLATION IN PLACE. VITALS STABLE AT THIS TIME. PATIENT IS ON 8L OXYMIZER, SPO2 AT 95%. PATIENT ABLE TO MOVE ALL EXTREMITIES, AND REPOSITION SELF IN BED WITHOUT DIFFICULTY. BEDSIDE COMMODE NEXT TO PATIENTS BED. NEW IV NOTED TO RIGHT HAND, 20G INTACT AND PATENT, PLACED TODAY. POC DISCUSSED, ALL QUESTIONS ANSWERED. CALL LIGHT WITHIN REACH.
--- NOTE | 2020-02-25 22:13 | NUR ---
Respiratory note: INHALER MDI TX WAS ADMINISTERED BY RN. PT RESTING COMFORTABLY IN BED AT THIS TIME, HR 64, RR 20, SPO2 94%, REMAINS ON 8LPM OXYMIZER. NO S/S OF RESPIRATORY DISTRESS.
[2020-02-26] VITALS: BP 85/52
[2020-02-26 04:00] VITALS: BP 99/57
--- NOTE | 2020-02-26 04:30 | NUR ---
AM CARE PATIENT GIVEN COMPLETE LINEN CHANGE. PATIENT ALSO GIVEN BED BATH WITH WARM SOAPY WATER. PATIENT ABLE TO PERFORM HYGIENE CARE ON HER OWN. TOLERATED WELL, NO SOB OR DISTRESS.
[2020-02-26] MEDS: ALBUTEROL SULF HFA 90MCG INH 200DOSE IN SCH ×3 (06:09→22:00)
[2020-02-26] MEDS: PIPERACILLIN-TAZOB 3.375GM 100 ML IV SCH ×3 (06:10→18:22)
[2020-02-26] MEDS: FUROSEMIDE 20 MG/2 ML VIAL IV SCH ×2 (06:10→18:24)
--- NOTE | 2020-02-26 07:46 | NUR ---
REPORT RECEIVED FROM WORKFORCE SERVICES REPRESENTATIVE NURSE. PATIENT RESTING IN BED. RESPIRATIONS EVEN AND UNLABORED. NO SIGNS OF ACUTE DISTRESS NOTED. CALL LIGHT IN REACH, BED IN LOW POSITION. WILL CONTINUE TO MONITOR.
--- NOTE | 2020-02-26 07:46 | NUR ---
CLOSING PATIENT IS SLEEPING COMFORTABLY AT THIS TIME CONNECTED TO CONTINUOUS MONITORS. HEART RATE IN MID 50'S, SPO2 AT 94% ON 8L OXYMIZER. NO SOB OR DISTRESS NOTED. REPORT ENDORSED TO DAYSHIFT LIZBETH Frederick
[2020-02-26 08:00] VITALS: BP 98/54
[2020-02-26] MEDS: POTASSIUM CHL 10 Meq TABLET PO SCH ×2 (09:33→22:00)
[2020-02-26] MEDS: ENOXAPARIN SOD 80 MG/0.8ML SYRINGE SC SCH ×2 (09:33→22:00)
[2020-02-26] MEDS: PANTOPRAZOLE 40 MG TAB PO SCH (09:33)
[2020-02-26] MEDS: ZINC SULFATE 220mg CAP or TAB PO SCH (09:33)
[2020-02-26] MEDS: ASCORBIC ACID 1,000 MG TAB PO SCH (09:33)
[2020-02-26] MEDS: DexAMETHasone SOD PHOS 4 MG/1ML SDV INJ IV SCH ×2 (09:35→22:00)
[2020-02-26] MEDS: CHOLECALCIFEROL (VITD3) 1,000UNIT=25mCg TAB PO SCH (09:35)
--- NOTE | 2020-02-26 11:41 | NUR ---
DR PEÑA AT BEDSIDE TO ASSESS PATIENT AND DISCUSS PLAN OF CARE. ALL ORDERS NOTED IN CHART.
[2020-02-26 12:00] VITALS: BP 100/54
--- NOTE | 2020-02-26 12:44 | NUR ---
Nutrition Followup Note Wt 71.0 kg Unable to see pt d/t pt with COVID positive. Pt appetite is good aeb pt with adequate po intake aeb pt with po intake of 100% 02/24 per RN doc. Est energy needs 0703-1779 kcal (25-30 kcal/kg BW 72.1kg) est protein needs 58-72g (0.8-1g/kg BW 72.1kg) Will reassess prn Labs: BUN 21H, Ca 8.2L, Alb 2.5L, GLUC 233H BM: 2 BMs 02/25 per RN doc Skin: BS 20 low risk, full details in director critical care doc PES: Overweight r/t caloric intake in excess of needs aeb pt BMI is 29.1kg/m2 which is overweight Comments 1) Continue to monitor po intake, labs, skin 2) Continue current plan of care Expected Outcomes/Goals: 1) Pt po intake >75% 2) Pt will sustain wt while in hospital 3) f/u 3-5 days
[2020-02-26 15:41] VITALS: BP 101/52
--- NOTE | 2020-02-26 19:30 | NUR ---
REPORT RECEIVED AND ASSUMED CARE; SEE INTERVENTIONS FOR ASSESSMENT; VS STABLE AT THIS TIME; WILL CONT. TO MONITOR.
[2020-02-26 20:00] VITALS: BP 107/63
[2020-02-27] VITALS: BP 91/45
--- NOTE | 2020-02-27 02:00 | NUR ---
REPORT GIVEN TO LIZBETH SILVA IN [facility].
[2020-02-27 03:32] LABS: Basophils # (auto) 0 10 ^3/uL (0-0.2); Basophils % (auto) 0.1 % (0.0-2.0); Eosinophils # (auto) 0.1 10 ^3/uL (0-0.8); Eosinophils % (auto) 0.8 % (0.0-7.0); Hematocrit 42.6 % (36.0-46.0); Hemoglobin 14.3 g/dL (12.2-16.2); Lymphocytes # (auto) 1.4 10 ^3/uL (0.4-5.4); Lymphocytes % (auto) 16.2 % (10.0-50.0); Mean Corpuscular Hemoglobin 29.9 pg (28.0-32.0); Mean Corpuscular Hgb Conc. 33.5 g/dL (32.0-36.0); Mean Corpuscular Volume 89.2 fL (80.0-100.0); Monocytes # (auto) 0.5 10 ^3/uL (0-1.3); Monocytes % (auto) 5.5 % (0.0-12.0); Neutrophils # (auto) 6.7 10 ^3/uL (1.6-8.6); Neutrophils % (auto) 77.4 % (37.0-80.0); Platelet Count (auto) 371 10^3/uL (140-450); Red Blood Cells 4.77 10^6/uL (4.0-5.20); White Blood Cell 8.7 10^3/uL (4.4-10.8)
[2020-02-27 03:55] LABS: Albumin 2.7 g/dL (3.4-5.0); Calcium 8.2 mg/dL (8.5-10.1); Potassium 3.8 mmol/L (3.5-5.1)
[2020-02-27 03:59] LABS: BUN/Creatinine Ratio 24.7; Bilirubin, Total 0.7 mg/dL (0.2-1.0); CRP High Sensitivity 0.7 mg/dL (< 0.3); Total Protein 5.9 g/dL (6.4-8.2)
[2020-02-27 04:00] VITALS: BP 90/49
[2020-02-27] MEDS: FUROSEMIDE 20 MG/2 ML VIAL IV SCH ×2 (06:00→18:32)
[2020-02-27] MEDS: ALBUTEROL SULF HFA 90MCG INH 200DOSE IN SCH ×3 (06:30→20:58)
[2020-02-27 08:00] VITALS: BP 102/62
--- NOTE | 2020-02-27 08:00 | NUR ---
Pt remained stable this shift. No changes since receiving patient. Report given, care endorsed.
--- NOTE | 2020-02-27 08:02 | NUR ---
Opening Shift Note Assumed care of patient, awake and alert x 4. No S/S of distress or pain. Patient is currently using an 8l/min Oxymizer and her oxygen saturation is 91%. Patient is tachypneic but is breathing without great effort and reports no SOB. Continuous cement finisher is on. Continuous pulse ox monitor is on and waveform is uniform and accurate. Bed is in lowest position and locked. Call light within reach. Board updated. Instructed on POC and to call for assist PRN, will continue to monitor for changes Q1hr and PRN.
[2020-02-27] MEDS: PIPERACILLIN-TAZOB 3.375GM 100 ML IV SCH ×4 (08:35→18:32)
[2020-02-27] MEDS: POTASSIUM CHL 10 Meq TABLET PO SCH ×2 (09:50→20:59)
[2020-02-27] MEDS: DexAMETHasone SOD PHOS 4 MG/1ML SDV INJ IV SCH ×2 (09:50→20:59)
[2020-02-27] MEDS: ZINC SULFATE 220mg CAP or TAB PO SCH (09:50)
[2020-02-27] MEDS: PANTOPRAZOLE 40 MG TAB PO SCH (09:51)
[2020-02-27] MEDS: ENOXAPARIN SOD 80 MG/0.8ML SYRINGE SC SCH ×2 (09:52→20:59)
[2020-02-27] MEDS: ASCORBIC ACID 1,000 MG TAB PO SCH (09:52)
[2020-02-27] MEDS: CHOLECALCIFEROL (VITD3) 1,000UNIT=25mCg TAB PO SCH (09:52)
--- NOTE | 2020-02-27 10:14 | NUR ---
MD Beck in to see patient. Order received: transfer to telemetry in [facility] unit. Addendum: 02/27/20 at 1105 by GEOFF SALCIDO RN MD Johnson ordered transfer, not MD Beck.
[2020-02-27 12:00] VITALS: BP 111/70
--- NOTE | 2020-02-27 12:22 | NUR ---
PATIENT PROVIDED WITH LUNCH TRAY NO PAIN OR DISTRESS NOTED
--- NOTE | 2020-02-27 14:39 | NUR ---
RT made are that MDI therapy was administered. Patient aware that the MD has ordered transfer to [facility] as a Telemetry downgrade.
[2020-02-27 15:55] VITALS: BP 101/63
--- NOTE | 2020-02-27 16:31 | NUR ---
Spoke to MD Quan regarding patient's elevated blood pressure and increased oxygen demand. Patient's oxygen saturation dropped to 87% and remained at that percentage without changing. Patient's oxygen increased to 8l/min oxymizer from 6 l/min oxymizer. Patient's oxygen saturation is now 92%. Patient's blood pressure also increased to 165/84. Patient takes atenolol 25 mg PO daily as a home medication. MD Quan ordered the followin) Hydralazine 10 mg IV push q 6 hrs PRN SBP>160, 2) Atenol 25 mg PO Daily with first dose to be given now. Orders received, verified, and placed.
--- NOTE | 2020-02-27 19:12 | NUR ---
Patient is resting comfortably in bed with no signs of SOB or distress. Patient is still on 8 l/min Oxymizer. Report given to LIZBETH Sheldon.
[2020-02-27 20:00] VITALS: BP 97/58
--- NOTE | 2020-02-27 20:00 | NUR ---
SHIFT OPENING NOTE RECEIVED PATIENT AWAKE, ALERT AND ORIENTED X4. NO SOB, DISTRESS OR PAIN NOTED. ON 8L OXYMIZER POX 95%. GETS UP TO BSC INDEPENDENTLY. ON ISOLATION FOR COVID POSITIVE. IV INFUSING ZOSYN. PHYSICAL ASSESSMENT COMPLETED, SEE INTERVENTIONS. INSTRUCTED ON POC AND TO CALL FOR ASSIST NEEDED. BED IS IN THE LOWEST POSITION WITH SIDE RAILS UP X2, CALL LIGHT IS WITHIN REACH.
[2020-02-28] VITALS (7 sets, daily range): BP systolic 98–113; BP diastolic 49–62
[2020-02-28] MEDS: PIPERACILLIN-TAZOB 3.375GM 100 ML IV SCH ×5 (00:45→23:34)
--- NOTE | 2020-02-28 03:54 | NUR ---
REPORT GIVEN TO GRACIA RN IN TELE ALL QUESTIONS ANSWERED.
--- NOTE | 2020-02-28 04:08 | NUR ---
PATIENT TRANSPORTED VIA WHEELCHAIR AND PORTABLE OXYGEN TO ROOM 248B ALL BELONGINGS TAKEN WITH PATIENT.
--- NOTE | 2020-02-28 04:10 | NUR ---
Assumed care of patient Awake and alert. No S/S of distress/SOB or pain. Instructed on POC and to call for assist as needed. Patient currently resting in bed with the rails up x2, bed is locked in the lowest position. Call light explained and placed within reach. Pt is currently on 8l of 02 via oxymizer. Will continue to monitor.
[2020-02-28] MEDS: FUROSEMIDE 20 MG/2 ML VIAL IV SCH ×2 (05:53→18:00)
[2020-02-28] MEDS: ALBUTEROL SULF HFA 90MCG INH 200DOSE IN SCH ×3 (06:00→22:20)
--- NOTE | 2020-02-28 07:25 | NUR ---
Opening shift note Assumed care of patient from NOC RN. Patient is Aox4 no s/s of distress noted. Bed is in lowest locked position, side rails up x2, and call light within reach. Updated patient on plan of care and patient verbalized understanding. Will continue to monitor q1hr and PRN.
--- NOTE | 2020-02-28 07:58 | NUR ---
Respiratory note: PT IS AWAKE, AND ALERT. NO RESPIRATORY DISTRESS NOTED. SPO2 96% ON 8L OXYMIZER 64% FIO2, HR 60, RR 18, BS CLEAR/DIMINISHED BILATERALLY. 1 PUFF ALBUTEROL (90MCG) GIVEN BY RN, WITH NO ADVERSE EFFECTS NOTED. NO FURTHER RESPIRATORY INTERVENTIONS INDICATED. WILL CONTINUE TO MONITOR PT. CHARTING COMPLETE FROM OUTSIDE OF ROOM.
[2020-02-28] MEDS: POTASSIUM CHL 10 Meq TABLET PO SCH ×2 (12:28→22:32)
[2020-02-28] MEDS: DexAMETHasone SOD PHOS 4 MG/1ML SDV INJ IV SCH ×2 (12:28→22:32)
[2020-02-28] MEDS: ZINC SULFATE 220mg CAP or TAB PO SCH (12:28)
[2020-02-28] MEDS: PANTOPRAZOLE 40 MG TAB PO SCH (12:28)
[2020-02-28] MEDS: ASCORBIC ACID 1,000 MG TAB PO SCH (12:29)
[2020-02-28] MEDS: ENOXAPARIN SOD 80 MG/0.8ML SYRINGE SC SCH ×2 (12:29→22:33)
[2020-02-28] MEDS: CHOLECALCIFEROL (VITD3) 1,000UNIT=25mCg TAB PO SCH (12:29)
--- NOTE | 2020-02-28 14:16 | NUR ---
Respiratory note: PT IS AWAKE, AND ALERT. NO RESPIRATORY DISTRESS NOTED. SPO2 97% ON 8L OXYMIZER 64% FIO2, HR 63, RR 22, BS CLEAR/DIMINISHED BILATERALLY. 1 PUFF ALBUTEROL (90MCG) GIVEN, WITH NO ADVERSE EFFECTS NOTED. NO FURTHER RESPIRATORY INTERVENTIONS INDICATED. WILL CONTINUE TO MONITOR PT. CHARTING COMPLETE FROM OUTSIDE OF ROOM.
--- NOTE | 2020-02-28 14:20 | NUR ---
Oxygen titration titrated oxygen to 4L on oximizer patient saturation at 96%. No signs and symptoms of distress or shortness of breath noted. Will continue to monitor q1hr and PRN.
--- NOTE | 2020-02-28 15:50 | NUR ---
Physician rounding Dr. Johnson at bedside. Updated her on patient status. Per MD titrate o2 as tolerated and monitor oxygen saturation. Will follow through, will continue care.
--- NOTE | 2020-02-28 15:55 | NUR ---
Oxygen titration titrated oxygen to 6L patient saturation at 94-96%. No signs and symptoms of distress or shortness of breath noted. Will continue to monitor q1hr and PRN.
--- NOTE | 2020-02-28 18:03 | NUR ---
Oxygen assessment titrated oxygen to 3L on oximizer patient saturation at 96%. No signs and symptoms of distress or shortness of breath noted. Will continue to monitor q1hr and PRN.
--- NOTE | 2020-02-28 19:05 | NUR ---
END OF SHIFT NOTE Endorsed care of patient to NOC RN Sriram. No s/s of distress noted.
[2020-02-29 05:00] VITALS: BP 100/57
[2020-02-29] MEDS: PIPERACILLIN-TAZOB 3.375GM 100 ML IV SCH ×3 (06:08→18:00)
[2020-02-29] MEDS: FUROSEMIDE 20 MG/2 ML VIAL IV SCH ×2 (06:09→18:00)
[2020-02-29] MEDS: ALBUTEROL SULF HFA 90MCG INH 200DOSE IN SCH ×2 (06:09→14:56)
[2020-02-29] MEDS: ZINC SULFATE 220mg CAP or TAB PO SCH (10:28)
[2020-02-29] MEDS: CHOLECALCIFEROL (VITD3) 1,000UNIT=25mCg TAB PO SCH (10:28)
[2020-02-29] MEDS: DexAMETHasone SOD PHOS 4 MG/1ML SDV INJ IV SCH (10:28)
[2020-02-29] MEDS: ASCORBIC ACID 1,000 MG TAB PO SCH (10:28)
[2020-02-29] MEDS: POTASSIUM CHL 10 Meq TABLET PO SCH (10:29)
[2020-02-29] MEDS: ENOXAPARIN SOD 80 MG/0.8ML SYRINGE SC SCH (10:29)
[2020-02-29] MEDS: PANTOPRAZOLE 40 MG TAB PO SCH (10:29)
[2020-02-29] MEDS ORDERED: DEX4T PO (11:50)
[2020-02-29] MEDS ORDERED: POTA1TAB61 PO (11:50)
[2020-02-29] MEDS ORDERED: FURO1TAB33 PO (11:50)
[2020-02-29] MEDS ORDERED: PANT40TA2 PO (11:50)
[2020-02-29] MEDS ORDERED: DOXY-286 PO (11:50)
[2020-02-29] MEDS ORDERED: ZINC220T6 PO (11:51)
[2020-02-29] MEDS ORDERED: ASCO10003 PO (11:51)
[2020-02-29 13:00] VITALS: BP 104/69
--- NOTE | 2020-02-29 13:28 | NUR ---
D/C Planning Per [facility] consult for home O2. Spoke to patient regarding quotes from [facility] for self pay due to no health insurance. Per Gabby she will pay for the medical equipment. Informed her clinical information will be faxed to [facility] and they will contact her with payment options before delivering portable oxygen to [facility]. Patient informed me she will make an appointment at [facility] for a reassessment. Patient verbalize understanding d/c plan. Faxed clinical information to [facility] requesting informing them its a self pay order and for them to deliver oxygen to [facility]. Placed call to [facility] ) spoke to Michelle. Per Yancy Martinez is currently working on order and will contact patient regarding payment. LIZBETH Purcell was informed.
--- NOTE | 2020-02-29 14:34 | NUR ---
CONTACTED [facility] REGARDING PTS MEDICATIONS. STATED PT NEEDS TO PAY BALANCE TO RECEIVE MEDICATIONS.
--- NOTE | 2020-02-29 15:43 | NUR ---
SPOKE WITH TAYLOR FROM . STATED PT DID NOT FOLLOW UP WITH HOME O2 COMPANY. TAYLOR STATED SHE WOULD CALL HOME O[employer] COMPANY TO SOLVE ISSUE.
--- NOTE | 2020-02-29 17:31 | NUR ---
HOME O2 DELIVERED AT [facility].
[2020-02-29 17:52] VITALS: BP 101/57
--- NOTE | 2020-02-29 18:08 | NUR ---
Discharge instructions given as ordered. Encourage to follow up with PMD as instructed. All questions and concerns addressed. Patient verbalized understanding. Medication reconciliation form completed and copy given to patient. HIV removed with catheter intact, pressure dressing applied. Telemetry unit returned to ICU. Patient taken to vehicle via wheelchair with all personal belongings, accompanied by staff and security. No distress noted at time of departure.
== END 2020-02-29 18:12 | disposition home or self-care (01) | DRG 177 ==
LOC: ER 18:42 → EDBD 18:42 → TELE 18:43 → DOU IN ICU 02-19 10:15 → TELE-EAST 02-28 04:08
PROVIDERS: ADMIT Hospitalist; ATTEND Internal Medicine
PROC: 5A09357 Assistance with Respiratory Ventilation, Less than 24 Consecutive Hours, Continuous Positive Airway Pressure (ICD-10-PCS; 2020-02-20)
PROC: 5A09357 Assistance with Respiratory Ventilation, Less than 24 Consecutive Hours, Continuous Positive Airway Pressure (ICD-10-PCS; principal; 2020-02-21)
PROC: 5A09357 Assistance with Respiratory Ventilation, Less than 24 Consecutive Hours, Continuous Positive Airway Pressure (ICD-10-PCS; 2020-02-22)
PROC: 5A09357 Assistance with Respiratory Ventilation, Less than 24 Consecutive Hours, Continuous Positive Airway Pressure (ICD-10-PCS; 2020-02-23)
PROC: 5A09357 Assistance with Respiratory Ventilation, Less than 24 Consecutive Hours, Continuous Positive Airway Pressure (ICD-10-PCS; 2020-02-24)
DX: U07.1 COVID-19 (principal); A41.89 Other specified sepsis; J12.89 Other viral pneumonia; J96.01 Acute respiratory failure with hypoxia; J06.9 Acute upper respiratory infection, unspecified; E66.9 Obesity, unspecified; Z68.29 Body mass index [BMI] 29.0-29.9, adult; Z90.710 Acquired absence of both cervix and uterus; Z90.49 Acquired absence of other specified parts of digestive tract; Z88.1 Allergy status to other antibiotic agents
CPT/HCPCS: 36415; 36600; 71045; 80048; 80053; 81001; 82728; 82805; 83605; 83615; 83735; 84443; 84484; 85007; 85025; 85027; 85379; 86141; 87040; 87070; 87086; 87804; 87880; 94640; 94660; G0378; J1100; J1956; J2405; J2543